=== PATIENT | male | born 1965 | race Caucasian/White ===

== ENCOUNTER 2016-12-06 12:12 | Emergency (ER) | payer SELFPAY ==
[~2016-12-06] VITALS: Ht 177.8 cm; Wt 75.0 kg
[2016-12-06 12:14] VITALS: BP 183/93; PULSE 96; RESP 17; TEMP 98.1; O2SAT 95
--- NOTE | 2016-12-06 12:37 | PD ---
HPI . upper back pain for about 2-3 weeks Chief Complaint: Back/ Neck Pain or Injury Time Seen by Provider: 12:31 Travel History International Travel<30 days: No Contact w/Intl Traveler<30days: No Traveled to known affect area: No History of Present Illness HPI 51-year-old male here with complaints of upper back pain for the past 2-3 weeks. Patient tells me that he was seen at [facility] and told that he has a pinched nerve. He says at that time x-rays were done and were normal. Patient says he was discharged home with anti-inflammatories and pain medication. He says that the pain medication somewhat help, but he continues to have pain despite following all of the recommendations he was advised to do. He does not have a primary care provider. He is now complaining of pain in his upper back that is causing a shooting sensation into his arms. At times he says he feels that there may be like a slight numbness, however that is not present at this moment. He tells me that the pain is very sharp and rates it as a 7/10 without further radiation. He denies any recent injuries. He tells me he has been doing research and he needs a MRI. He doesn't agree with his dx from [facility]. [facility] Past Medical History Medical History: Denies Significant Hx Social History Tobacco Use: Yes Allergies-Medications (Allergen,Severity, Reaction): Coded Allergies: Soma (Verified Allergy, Severe, rash, 12/06/16) Reported Meds & Prescriptions Reported Meds & Active Scripts Active Ibuprofen 800 Mg Tab 800 Mg PO TID Review of Systems General / Constitutional: No: Fever Eyes: No: Visual changes HENT: No: Headaches Cardiovascular: No: Chest Pain or Discomfort Respiratory: No: Shortness of Breath Gastrointestinal: No: Abdominal Pain Genitourinary: No: Dysuria Musculoskeletal: Positive: Pain (upper back pain ) Skin: No Rash Neurologic: No: Weakness Psychiatric: No: Depression Endocrine: No: Polydipsia Hematologic/Lymphatic: No: Easy Bruising Physical Exam Narrative GENERAL: AAO x 3, no acute distress, Well-nourished, well-developed patient. SKIN: Warm and dry. No visible rashes or bruising. HEAD: Normocephalic and atraumatic. EYES: No scleral icterus. No injection or drainage. EOM intact, PERRLA ENT: No nasal drainage noted. Mucous membranes pink. Airway patent. NECK: Supple, trachea midline. No JVD. No C-spine process tenderness. Flexion and extension of the neck is normal. No tenderness to palpation of the trapezius CARDIOVASCULAR: Regular rate and rhythm without murmurs, gallops, or rubs. RESPIRATORY: Breath sounds equal bilaterally. No accessory muscle use. No rhonchi or rales. GASTROINTESTINAL: Abdomen soft, non-tender, nondistended. EXTREMITIES: No cyanosis or edema. BACK: spine: Nontender without obvious deformity. Paraspinal tenderness in the thoracic spine. NEURO: CN II-12 intact, change management coordinator strength normal b/l, UE and LE 5/5, no focal deficits PSYCH: AAO x 3, normal affect. Data Data Last Documented VS Vital Signs Date Time Temp Pulse Resp B/P Pulse Ox O2 Delivery O2 Flow Rate FiO2 12/06/16 12:14 98.1 96 17 183/93 95 Orders Ketorolac Inj (Toradol Inj) (12/06/16 12:45) [facility] Medical Decision Making Medical Screen Exam Complete: Yes Emergency Medical Condition: Yes Medical Record Reviewed: Yes Differential Diagnosis Thoracic back pain, cervical radiculopathy, less likely T-spine fracture, Narrative Course 51-year-old male here with complaints of upper back pain. I've done examination on him and is fairly unremarkable. He does have some paraspinal muscle tenderness that is very minimal on examination. Upon further discussion it seems as patient really wants an MRI. I've explained to him that unfortunately this is something I cannot complete in the emergency department. It is not warranted on an emergent basis. His neuro exam is unremarkable. I have provided him with a shot of Toradol here for pain relief. I recommend ibuprofen upon discharge. He did request narcotic pain medication, however I advised him that this is something I will not be prescribing. I provided him with information for [employer] and advised him to establish there. Diagnosis Primary Impression: Back pain Qualified Code: M54.6 - Acute midline thoracic back pain Additional Impression: Cervical radicular pain Referrals: [facility] Patient Instructions: General Instructions Additional Instructions: Please return to emergency department if your symptoms return or worsen. Follow up with your primary care provider. Take medications as prescribed. You can try applying ice and heat to this area. Med/Other Pt SpecificInfo: Prescription(s) given Scripts Ibuprofen 800 Mg Rsa408 Mg PO TID #21 TAB Prov:Nida Marques MD 12/06/16 Disposition: 01 DISCHARGE HOME Condition: Stable Lara Griffith Dec 06, 2016 12:37
[2016-12-06] MEDS ORDERED: IBUP800T23 PO (12:38)
[2016-12-06] MEDS ORDERED: KETOROLAC TROMETHAMINE 60 MG/2 ML (IM) VIAL IM ONE (12:45)
== END 2016-12-06 12:51 | disposition home or self-care (01) ==
LOC: EDBD → NEPD 12:12
DX: M54.6 Pain in thoracic spine (principal); M54.12 Radiculopathy, cervical region
CPT/HCPCS: 96372; 99284; J1885